=== PATIENT | male | born 1965 | race Caucasian/White ===

== ENCOUNTER 2022-09-11 19:03 | Emergency (ER) | payer OTHER ==
--- OUTSIDE RECORDS SUMMARY | 2022-09-11 19:07 | XMS REPORT | Continuity of Care Document ---
:1965 Author Organization [facility] t Address 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 [facility] without [facility] complicati [facility] on Center [id number] Essential Problem Active Comm on (primary) Spirit hypertensi - [facility] on [facility] [id number] Non-season Problem Active Com mon al Spirit allergic - CHI rhinitis St due to [facility] pollen [facility] [id number] Pure Problem Active Common hyperchole Spirit sterolemia - [facility] Hyperglyce Type 2 Problem Active Commo n [facility] due to diabetes Spir it type 2 mellitus - CHI diabetes with mellitus hyperglyce [facility] Allergies, Adverse Reactions, Alerts This patient has no known allergies or adverse reactions. Social History Social Habit Start Date Stop Date Quantity Comments Source History of Tobacco Current Smoker Co mmon Spirit - [facility] Use [facility] al Center Sex Assigned At Com mon Spirit - [facility] Smoking Status Start Date Stop Date Source Current Smoker 2021-09-02 00:00:00 Common Spiri t - CHI [facility] Medications Ordered Filled Start Stop Current Ordering Indication Dosage Frequency Signature Comments Components Source Medication Medication Date Date Medication? Clinician (SIG) Name Name metFORMIN metFORMIN No 1{table BID metFORMIN HCl ER 500 HCl ER 500 09-02 t_with_ HCl ER 500 MG MG 00:00: evening MG 00 _meal} Atorvastati Atorvastati No 1{table Atorvastat n Calcium n Calcium 3-18 t} in Calcium 40 MG 40 MG 00:00: 40 MG 00 Fluticasone Fluticasone No 1{spray QD Fluticason Propionate Propionate 3-18 _in_eac e 50 MCG/ACT 50 MCG/ACT 00:00: h_nostr Propionate 00 il} 50 MCG/ACT Metoprolol Metoprolol No 1{table QD Metoprolol Succinate Succinate 3-18 t} Succinate ER 50 MG ER 50 MG 00:00: ER 50 MG 00 Atorvastati Atorvastati No 1{table Atorvastat n Calcium n Calcium 3-18 t} in Calcium 40 MG 40 MG 00:00: 40 MG 00 Fluticasone Fluticasone No 1{spray QD Fluticason Propionate Propionate 3-18 _in_eac e 50 MCG/ACT 50 MCG/ACT 00:00: h_nostr Propionate 00 il} 50 MCG/ACT Metoprolol Metoprolol No 1{table QD Metoprolol Succinate Succinate 3-18 t} Succinate ER 50 MG ER 50 MG 00:00: ER 50 MG 00 Tessalon Tessalon No 1{capsu TID Tessalon Perles 100 Perles 100 3-08 le_as_n Perles 100 MG MG 00:00: eeded} MG 00 Tessalon Tessalon No 1{capsu TID Tessalon Perles 100 Perles 100 3-08 le_as_n Perles 100 MG MG 00:00: eeded} MG 00 Tessalon Tessalon No 1{capsu TID Tessalon Perles 100 Perles 100 3-08 le_as_n Perles 100 MG MG 00:00: eeded} MG 00 Tessalon Tessalon No 1{capsu TID Tessalon Perles 100 Perles 100 3-08 le_as_n Perles 100 MG MG 00:00: eeded} MG 00 Tessalon Tessalon No 1{capsu TID Tessalon Perles 100 Perles 100 3-08 le_as_n Perles 100 MG MG 00:00: eeded} MG 00 Metoprolol Metoprolol No Metoprolol Succinate Succinate Succinate ER 25 MG ER 25 MG ER 25 MG Patito Low Patito Low No 1{table QD Patito Low Dose 81 MG Dose 81 MG t} Dose 81 MG Patito Low Patito Low No 1{table QD Patito Low Dose 81 MG Dose 81 MG t} Dose 81 MG Patito Low [employer] Low No 1{table QD Patito Low Dose 81 MG Dose 81 MG t} Dose 81 MG Metoprolol Metoprolol No 1{table QD Metoprolol Succinate Succinate t} Succinate ER 50 MG ER 50 MG ER 50 MG Fluticasone Fluticasone No 1{spray QD Fluticason Propionate Propionate _in_eac e 50 MCG/ACT 50 MCG/ACT h_nostr Propionate il} 50 MCG/ACT Atorvastati Atorvastati No 1{table Atorvastat n Calcium n Calcium t} in Calcium 40 MG 40 MG 40 MG Patito Low Patito Low No 1{table QD Patito Low Dose 81 MG Dose 81 MG t} Dose 81 MG Fluticasone Fluticasone No 1{spray QD Fluticason Propionate Propionate _in_eac e 50 MCG/ACT 50 MCG/ACT h_nostr Propionate il} 50 MCG/ACT Metoprolol Metoprolol No 1{table QD Metoprolol Succinate Succinate t} Succinate ER 50 MG ER 50 MG ER 50 MG Patito Low [employer] Low No 1{table QD Patito Low Dose 81 MG Dose 81 MG t} Dose 81 MG Atorvastati Atorvastati No 1{table Atorvastat n Calcium n Calcium t} in Calcium 40 MG 40 MG 40 MG Vital Signs Vital Name Observation Time Observation Value Comments Source height 2021-04-29 16:20:00 69 [in_i] [facility] weight 2021-04-29 16:20:00 241.4 [lb_av] Common [facility] temperature 2021-04-29 16:20:00 97.4 [degF] [facility] bmi 2021-04-29 16:20:00 35.64 kg/m2 [facility] oximetry 2021-04-29 16:20:00 97 % [facility] respiratory rate 2021-04-29 16:20:00 16 /min Comm on [facility] blood pressure 2021-04-29 16:20:00 142 mm[Hg] Common [facility] - systolic [facility] blood pressure 2021-04-29 16:20:00 82 mm[Hg] Common [facility] - diastolic [facility] height 2021-04-19 08:20:00 69 [in_i] Common [facility] weight 2021-04-19 08:20:00 240 [lb_av] Common [facility] bmi 2021-04-19 08:20:00 35.44 kg/m2 Common [facility] Procedures This patient has no known procedures. Encounters Start End Encounter Admission Attending Care Care Encounter Source Date/Time Date/Time Type Type Clinicians Facility Department ID 2022-08-23 Outpatient Crump, STLMLC STLMLC [id number] Common 11:18:00 Jadyn [id number] [facility] 2022-05-22 Outpatient Crump, STLMLC STLMLC [id number] Common 08:17:00 Jadyn [id number] [facility] 2022-03-08 Outpatient Crump, STLMLC STLMLC [id number] Common 08:50:03 Jadyn [facility] 2021-11-15 Outpatient Crump, STLMLC STLMLC [id number] Common 13:55:02 Jadyn [facility] 2021-08-31 Outpatient Crump, STLMLC STLMLC [id number] Common 08:53:02 Jadyn [facility] 2021-04-28 Outpatient Crump, STLMLC STLMLC [id number] Common 13:19:01 Jadyn [facility] 2021-04-27 Outpatient Crump, STLMLC STLMLC [id number] Common 11:29:02 Jadyn [facility] 2021-04-19 Outpatient Crump, STLMLC STLMLC [id number] Common 08:27:03 Jadyn [facility] 2021-09-02 2021-09-02 OFFICE STLMLC STLMLC [id number] Co mmon 00:00:00 00:00:00 VISIT [facility] PT - CHI LEVEL 4 [facility] 2021-08-30 2021-08-30 (TEL) STLMLC STLMLC [id number] Co mmon 00:00:00 00:00:00 [facility] 2021-05-02 2021-05-02 (TEL) STLMLC STLMLC [id number] Co mmon 00:00:00 00:00:00 [facility] 2021-04-29 2021-04-29 OFFICE STLMLC STLMLC [id number] Co mmon 00:00:00 00:00:00 [facility]IT [facility] - [facility] LEVEL 4 [facility] 2021-04-19 2021-04-19 OFFICE STLMLC STLMLC [id number] Co mmon 00:00:00 00:00:00 VISIT JOSE MIGUEL [facility] PT LEVEL 3 - [facility] Results This patient has no known results.
--- NOTE | 2022-09-11 19:58 | RAD REPORT ---
EXAM DESCRIPTION: CTStone Protocol - 09/11/2022 7:38 pm CLINICAL HISTORY: FLANK PAIN COMPARISON: No comparisons TECHNIQUE: CT of the abdomen and pelvis was performed without IV contrast. All CT scans are performed using dose optimization technique as appropriate and may include automated exposure control or mA/KV adjustment according to patient size. FINDINGS: Lower chest: Coronary artery calcifications. Liver: Hepatic steatosis. Biliary: No biliary ductal dilatation. Stomach: No significant focal abnormality. Duodenum: No significant focal abnormality. Pancreas: No significant abnormality. Spleen: No significant abnormality. Adrenal: No suspicious lesions. Kidney/ureter: Mild right-sided hydroureteronephrosis secondary to a 4 millimeters stone at the right distal ureter. No renal calculi. Retroperitoneum: No retroperitoneal adenopathy. Vascular: No aneurysm. Bowel: No significant focal abnormality. Peritoneum: No ascites or free air. Small fat containing inguinal hernias. Bladder: Grossly unremarkable. Reproductive: No adnexal masses. Bones: No acute fracture. Other: n/a IMPRESSION: Mild right-sided hydronephrosis secondary to a 4 mm stone in the right distal ureter.
[2022-09-11 20:02] LABS: Specific Gravity 1.025 (1.005-1.030); Urine Bacteria <20 /HPF (<20); Urine Bilirubin NEGATIVE (Negative); Urine Blood 3+ (OVER) (Negative); Urine Clarity Extremely Turbid (Clear); Urine Color Light-Orange (Yellow); Urine Glucose NEGATIVE (Negative); Urine Mucus 3+ /HPF (None Seen); Urine Protein 1+ (Negative); Urine RBC >50 /HPF (None Seen); Urine Urobilinogen Normal (Normal); Urine pH 5.5 (5.0-7.0)
[2022-09-11] MEDS ORDERED: ONDANSETRON 4 MG/2 ML VIAL ONE (20:14)
[2022-09-11] MEDS ORDERED: KETOROLAC 30 MG/ML INJ ONE (20:14)
[2022-09-11 20:27] LABS: Absolute Lymphocytes (CBC) 3.4 K/uL (0.7-4.9); Hematocrit 45.1 % (39.6-49.0); Lymphocytes % 19.8 % (15.3-44.8); MCV 87.8 fL (80-100); MPV 7.7 fL (7.6-11.3); RBC Red Blood Cell Count 5.13 M/uL (4.33-5.43)
[2022-09-11 20:43] LABS: Albumin 3.9 g/dL (3.4-5.0); Bilirubin Total 0.7 mg/dL (0.2-1.0); Potassium 3.8 mEq/L (3.5-5.1); Protein, Total 7.7 g/dL (6.4-8.2)
[2022-09-11] MEDS ORDERED: MAGNESIUM SULFATE 1 gm IVPB 1 GM/100 ML BAG IV ONE (21:31)
[2022-09-11] MEDS ORDERED: HYDROMORPHONE HCL 1 MG/ML INJ ONE (21:31)
[2022-09-11] MEDS ORDERED: NA CHLORIDE 0.9% 1,000 ML ONE (21:31)
[2022-09-11] MEDS ORDERED: CEFTRIAXONE 1000 MG/VIAL ONE (21:31)
[2022-09-11] MEDS ORDERED: TAMSULOSIN 0.4 MG SR CAP ONE (21:31)
--- NOTE | 2022-09-11 22:44 | EDPHYS ---
Physician Documentation [facility] Name: Michael Shafer Age: 57 yrs Sex: Male : 1965 Arrival Date: 09/11/2022 Time: 19:03 Bed 15 Private MD: ED Physician Daniel Lee HPI: 09/11 19:30 This 57 yrs old Male presents to ER via Ambulatory with complaints of Flank Pain. cp 19:30 The patient complains of pain in the right flank. cp 19:30 The pain radiates to the abdomen and right testicle. Onset: The symptoms/episode cp began/occurred suddenly, today, about 1800. 19:30 Associated signs and symptoms: Pertinent positives: urinary frequency, nausea, cp vomiting, Pertinent negatives: diarrhea, fever, headache, pain radiating to the lower extremities. Severity of pain: in the emergency department the pain is unchanged despite home interventions. The patient has not experienced similar symptoms in the past. Historical: - Allergies: 19:16 NKA; cm10 - PMHx: 19:16 Diabetes mellitus; Hypertensive disorder; cm10 - Immunization history:: Adult Immunizations. - Social history:: Smoking status: unknown. ROS: 19:35 Eyes: Negative for injury, pain, redness, and discharge. cp 19:35 Constitutional: Negative for chills, fever, poor PO intake. 19:35 ENT: Negative for drainage from ear(s), ear pain, sore throat, difficulty swallowing, difficulty handling secretions. 19:35 Cardiovascular: Negative for chest pain, palpitations. 19:35 Respiratory: Negative for cough, shortness of breath, wheezing. 19:35 Abdomen/GI: Positive for nausea and vomiting, Negative for diarrhea, constipation. 19:35 Back: Positive for flank pain, on the right. 19:35 : Positive for urinary frequency, testicular pain 19:35 Neuro: Negative for altered mental status, dizziness, headache, numbness, syncope, weakness. 19:36 All other systems are negative. cp Exam: 19:40 Constitutional: The patient appears in no acute distress, alert, awake, non-toxic, well cp developed, well nourished, in obvious pain, uncomfortable. 19:40 Head/Face: Normocephalic, atraumatic. cp 19:40 Eyes: Periorbital structures: appear normal, Conjunctiva: normal, no exudate, no injection, Sclera: no appreciated abnormality, Lids and lashes: appear normal, bilaterally. 19:40 ENT: External ear(s): are unremarkable, Nose: is normal, Mouth: Lips: moist, Oral mucosa: pink and intact, moist, Posterior pharynx: is normal, airway is patent, no erythema, no exudate. 19:40 Chest/axilla: Inspection: normal. 19:40 Cardiovascular: Rate: normal, Rhythm: regular, Edema: is not appreciated, JVD: is not appreciated. 19:40 Respiratory: the patient does not display signs of respiratory distress, Respirations: normal, no use of accessory muscles, no retractions, labored breathing, is not present, Breath sounds: are clear throughout, no decreased breath sounds, no stridor, no wheezing. 19:40 Abdomen/GI: Inspection: abdomen appears normal, Bowel sounds: active, all quadrants, Palpation: soft, in all quadrants, moderate abdominal tenderness, in the anterior aspect of right lateral abdomen and posterior aspect of right lateral abdomen, rebound tenderness, is not appreciated, voluntary guarding, is elicited in the anterior aspect of right lateral abdomen and posterior aspect of right lateral abdomen. 19:40 Neuro: Orientation: to person, place \T\ time. Mentation: is normal, Motor: moves all fours, strength is normal, Gait: is steady. Vital Signs: 19:14 BP 190 / 84; Pulse 63; Resp 18; Temp 98.4; Pulse Ox 99% on R/A; Weight 104.33 kg; cm10 Height 5 ft. 8 in. ; Pain 9/10; 21:57 BP 152 / 77; Pulse 64; Resp 16; Pulse Ox 96% on R/A; jb4 23:13 BP 113 / 77; Pulse 63; Resp 16; Pulse Ox 95% on R/A; jb4 19:14 Body Mass Index 34.97 (104.33 kg, 172.72 cm) cm10 19:14 Pain Scale: Adult cm10 MDM: 19:18 Patient medically screened. cp 20:00 Differential diagnosis: nephrolithiasis, pyelonephritis, UTI, testicular torsion, cp pancreatitis, cholecystitis. 22:42 Data reviewed: vital signs, nurses notes, lab test result(s), radiologic studies, CT cp scan. 22:42 Consideration of Admission/Observation Escalation of care including cp admission/observation considered. I considered the following discharge prescriptions or medication management in the emergency department Medications were administered in the Emergency Department. See MAR. Care significantly affected by the following chronic conditions: Diabetes, Hypertension. Counseling: I had a detailed discussion with the patient and/or guardian regarding: the historical points, exam findings, and any diagnostic results supporting the discharge/admit diagnosis, lab results, radiology results, to return to the emergency department if symptoms worsen or persist or if there are any questions or concerns that arise at home. Response to treatment: the patient's symptoms have markedly improved after treatment, and as a result, I will discharge patient. 09/11 19:18 Order name: CBC with Diff; Complete Time: 20:38 09/11 21:54 Interpretation: Normal except: WBC 17.10; NEUT A 12.3. 09/11 19:18 Order name: CMP; Complete Time: 21:05 09/11 21:54 Interpretation: Normal except: NA 133; GLUC 159; GLOB 3.8; A/G 1.0. 09/11 19:18 Order name: Lipase; Complete Time: 21:05 09/11 19:18 Order name: Urinalysis w/ reflexes; Complete Time: 20:38 09/11 21:54 Interpretation: Normal except: [facility] Extremely Turbid; UKET 1+; UBLD 3+ (OVER); UPROT cp 1+; UWBC 10-20; URBC >50; MUCUS 3+; BYST Many. 09/11 20:06 Order name: Urine Culture [facility] 09/11 19:18 Order name: CT Stone Protocol; Complete Time: 20:38 09/11 19:18 Order name: IV Saline Lock; Complete Time: 20:12 09/11 19:18 Order name: Labs collected and sent; Complete Time: 20:12 09/11 20:40 Order name: Urine Strainer; Complete Time: 23:12 09/11 21:53 Order name: Vital Signs; Complete Time: 21:58 cp Administered Medications: 20:12 Drug: TORadol - Ketorolac IVP 15 mg Route: IVP; Site: left antecubital; cm10 20:12 Drug: Ondansetron IVP 4 mg Route: IVP; Site: left antecubital; cm10 21:40 Drug: NS 0.9% IV 1000 ml Route: IV; Rate: 1 bolus; Site: left antecubital; cm10 21:40 Drug: Rocephin IV 1 grams Route: IV; Rate: calculated rate; Site: left antecubital; cm10 21:40 Drug: Flomax PO 0.4 mg Route: PO; cm10 21:40 Drug: Magnesium Sulfate IVPB 1 grams Route: IVPB; Infused Over: 30 mins; Site: left cm10 antecubital; 21:40 Drug: HYDROmorphone IVP 1 mg Route: IVP; Site: left antecubital; cm10 Disposition Summary: 09/11/22 22:43 Discharge Ordered Location: Home cp Problem: new cp Symptoms: have improved cp Condition: Stable cp Diagnosis - Calculus of ureter - right cp Followup: cp - With: Pierce Ott MD - When: 5 - 6 days - Reason: pain continues Discharge Instructions: - Discharge Summary Sheet cp - Kidney Stones cp - Renal Colic cp Forms: - Medication Reconciliation Form cp - Thank You Letter cp - Antibiotic Education cp - Prescription Opioid Use cp - Patient Portal Instructions cp Prescriptions: - Flomax 0.4 mg Oral capsule - take 1 capsule by ORAL route every 24 hours As needed; 7 capsule; Refills: 0, cp Product Selection Permitted - acetaminophen-codeine 300-30 mg Oral tablet - take 2 tablet by ORAL route every 8 hours; 20 tablet; Refills: 0, Product cp Selection Permitted - Zofran 4 mg Oral Tablet - take 1 tablet by ORAL route every 12 hours As needed; 20 tablet; Refills: 0, cp Product Selection Permitted - Cipro 500 mg Oral Tablet - take 1 tablet by ORAL route every 12 hours for 7 days; 14 tablet; Refills: 0, cp Product Selection Permitted Signatures: Dispatcher [employer] EDMS Lencho Loredo, LAST-C [employer] Adonis Blake PA PA cp Martinez, Clarissa, RN RN cm10 Corrections: (The following items were deleted from the chart) 09/12 21:21 09/11 19:05 Constitutional: Negative for chills, fever, poor PO intake, cp cp 09/12 21:09/11 19:05 Cardiovascular: Negative for chest pain, palpitations, cp cp 09/12 21:21 09/11 19:05 Respiratory: Negative for cough, shortness of breath, wheezing, cp cp 09/12 20:09/11 19:05 Abdomen/GI: Positive for nausea and vomiting, Negative for diarrhea, cp constipation, cp 09/12 20:09/11 19:05 Back: Positive for flank pain, on the right, cp cp 09/12 20:09/11 19:05 Eyes: Negative for injury, pain, redness, and discharge, cp cp 09/12 20:09/11 19:05 ENT: Negative for drainage from ear(s), ear pain, sore throat, difficulty cp swallowing, difficulty handling secretions, cp 09/12 20:09/11 19:05 : Positive for urinary frequency, testicular pain cp cp 09/12 20:09/11 19:05 Neuro: Negative for altered mental status, dizziness, headache, numbness, cp syncope, weakness, cp 09/12 20:09/11 19:05 All other systems are negative, cp cp
--- NOTE | 2022-09-11 22:44 | ER ---
Nurse's Notes [facility] Name: Michael Shafer Age: 57 yrs Sex: Male : 1965 Arrival Date: 09/11/2022 Time: 19:03 Bed 15 Private MD: Diagnosis: Calculus of ureter-right Presentation: 09/11 19:14 Chief complaint: Patient states: Right flank pain that radiates to RLQ onset at cm10 approximately 1800. Pt describes the pain as a sharp pain. Coronavirus screen: Vaccine status: Patient reports receiving the 2nd dose of the covid vaccine. Ebola Screen: No symptoms or risks identified at this time. Initial Sepsis Screen: Does the patient meet any 2 criteria? Does the patient have a suspected source of infection? No. Patient's initial sepsis screen is negative. Risk Assessment: Do you want to hurt yourself or someone else? Patient reports no desire to harm self or others. Onset of symptoms. 19:14 Method Of Arrival: Ambulatory cm10 19:14 Acuity: CRISSY 3 cm10 Historical: - Allergies: 19:16 NKA; cm10 - PMHx: 19:16 Diabetes mellitus; Hypertensive disorder; cm10 - Immunization history:: Adult Immunizations. - Social history:: Smoking status: unknown. Screenin:13 [facility] ED Fall Risk Assessment (Adult) History of falling in the last 3 months, jb4 including since admission No falls in past 3 months (0 pts) Confusion or Disorientation No (0 pts). Abuse screen: Denies threats or abuse. Nutritional screening: No deficits noted. Tuberculosis screening: No symptoms or risk factors identified. Assessment: 21:57 Reassessment: Patient appears in no apparent distress at this time. Patient and/or jb4 family updated on plan of care and expected duration. Pain level reassessed. Patient is alert, oriented x 3, equal unlabored respirations, skin warm/dry/pink. 23:13 Reassessment: Patient appears in no apparent distress at this time. Patient and/or jb4 family updated on plan of care and expected duration. Pain level reassessed. Patient is alert, oriented x 3, equal unlabored respirations, skin warm/dry/pink. Vital Signs: 19:14 BP 190 / 84; Pulse 63; Resp 18; Temp 98.4; Pulse Ox 99% on R/A; Weight 104.33 kg; cm10 Height 5 ft. 8 in. ; Pain 9/10; 21:57 BP 152 / 77; Pulse 64; Resp 16; Pulse Ox 96% on R/A; jb4 23:13 BP 113 / 77; Pulse 63; Resp 16; Pulse Ox 95% on R/A; jb4 19:14 Body Mass Index 34.97 (104.33 kg, 172.72 cm) cm10 19:14 Pain Scale: Adult cm10 ED Course: 19:04 Patient arrived in ED. am2 19:09 Adonis Blake PA is PHCP. cp 19:09 Daniel Lee MD is Attending Physician. cp 19:16 Triage completed. cm10 19:17 Arm band placed on Patient placed in waiting room. cm10 19:39 CT Stone Protocol In Process Unspecified. EDMS 19:44 Urinalysis w/ reflexes Sent. cm10 20:12 CBC with Diff Sent. cm10 20:12 CMP Sent. cm10 20:12 Lipase Sent. cm10 20:13 Initial lab(s) drawn, by me, sent to lab. Inserted saline lock: 20 gauge in left cm10 antecubital area, using aseptic technique. Blood collected. 21:57 Rod Noel, RN is Primary Nurse. jb4 22:43 Pierce Ott MD is Referral Physician. cp 23:13 Patient has correct armband on for positive identification. Bed in low position. Call jb4 light in reach. Side rails up X 1. Client placed on continuous cardiac and pulse oximetry monitoring. NIBP monitoring applied. 23:13 No provider procedures requiring assistance completed. IV discontinued, intact, jb4 bleeding controlled, No redness/swelling at site. Pressure dressing applied. Administered Medications: 20:12 Drug: TORadol - Ketorolac IVP 15 mg Route: IVP; Site: left antecubital; cm10 20:12 Drug: Ondansetron IVP 4 mg Route: IVP; Site: left antecubital; cm10 21:40 Drug: NS 0.9% IV 1000 ml Route: IV; Rate: 1 bolus; Site: left antecubital; cm10 21:40 Drug: Rocephin IV 1 grams Route: IV; Rate: calculated rate; Site: left antecubital; cm10 21:40 Drug: Flomax PO 0.4 mg Route: PO; cm10 21:40 Drug: Magnesium Sulfate IVPB 1 grams Route: IVPB; Infused Over: 30 mins; Site: left cm10 antecubital; 21:40 Drug: HYDROmorphone IVP 1 mg Route: IVP; Site: left antecubital; cm10 Outcome: 22:43 Discharge ordered by . mary beth 23:13 Discharged to home ambulatory. jb4 23:13 Condition: stable 23:13 Discharge instructions given to patient, Instructed on discharge instructions, follow up and referral plans. no drinking with medication, no driving heavy equipment, medication usage, Demonstrated understanding of instructions, follow-up care, medications, Prescriptions given X 4. 23:14 Patient left the ED. jb4 Signatures: Dispatcher [employer] EDMS Adonis Blake PA PA cp Bryson, James RN RN jb4 Sheila Burt Clarissa, RN RN cm10
[2022-09-11 23:35] VITALS: TEMP 98.4
[2022-09-11 23:37] VITALS: BP 113/77; O2SAT 95
== END 2022-09-11 23:14 | disposition home or self-care (01) ==
LOC: ER 19:03
DX: N20.1 Calculus of ureter (principal)
CPT/HCPCS: 87088; 85025; 81001; 87086; 36415; 83690; 80053; 76377; 74176; 96375; 96374; 99284; J3475; J1170; J2405; J7030; J0696

== ENCOUNTER 2022-09-14 18:34 | Emergency (ER) | payer OTHER ==
--- OUTSIDE RECORDS SUMMARY | 2022-09-14 18:37 | XMS REPORT | Continuity of Care Document ---
:1965 Author Organization [facility] t Address 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 [facility] without [facility] complicati [facility] [id number] Essential Problem Active Comm on (primary) Spirit hypertensi - [facility] on [facility] [id number] Non-season Problem Active Com mon al Spirit allergic - CHI rhinitis St due to [facility] [id number] Pure Problem Active Common hyperchole Spirit sterolemia - [facility] Hyperglyce Type 2 Problem Active Commo n [facility] due to diabetes Spir it type 2 mellitus - CHI diabetes with mellitus hyperglyce [facility] Allergies, Adverse Reactions, Alerts This patient has no known allergies or adverse reactions. Social History Social Habit Start Date Stop Date Quantity Comments Source History of Tobacco Current Smoker Co mmon Spirit - [facility] Use [facility] Sex Assigned At Com mon Spirit - [facility] Smoking Status Start Date Stop Date Source Current Smoker 2021-09-02 00:00:00 Common Spiri t - CHI [facility] Medications Ordered Filled Start Stop Current [...] MG 00:00: 40 MG 00 Fluticasone Fluticasone 0 No 1{spray QD Fluticason Propionate Propionate 3-18 [...] MG 00:00: 40 MG 00 Fluticasone Fluticasone 0 No 1{spray QD Fluticason Propionate Propionate 3-18 _in_eac e 50 MCG/ACT 50 MCG/ACT 00:00: h_nostr Propionate 00 il} 50 MCG/ACT Metoprolol Metoprolol 0 No 1{table QD Metoprolol Succinate Succinate 3-18 t} Succinate ER 50 MG ER 50 MG 00:00: ER 50 MG 00 Tessalon Tessalon No 1{capsu TID Tessalon Perles 100 Perles 100 3-08 le_as_n Perles 100 MG MG 00:00: eeded} MG 00 Tessalon Tessalon 0 No 1{capsu TID Tessalon Perles 100 Perles 100 3-08 le_as_n Perles 100 MG MG 00:00: eeded} MG 00 Tessalon Tessalon 0 No 1{capsu TID Tessalon Perles 100 Perles 100 3-08 le_as_n Perles 100 MG MG 00:00: eeded} MG 00 Tessalon Tessalon 2021-0 No 1{capsu TID Tessalon Perles 100 Perles 100 3-08 le_as_n Perles 100 MG MG 00:00: eeded} MG 00 Tessalon Tessalon 0 No 1{capsu TID Tessalon Perles 100 Perles 100 3-08 le_as_n Perles 100 MG MG 00:00: eeded} MG 00 Metoprolol Metoprolol No Metoprolol Succinate Succinate Succinate ER 25 MG ER 25 MG ER 25 MG Patito Low ALTILIA Low No 1{table QD Patito Low Dose 81 MG Dose 81 MG t} Dose 81 MG Patito Low ALTILIA Low No 1{table QD Patito Low Dose 81 MG Dose 81 MG t} Dose 81 MG Patito Low ALTILIA Low No 1{table QD Patito Low Dose [...] MG 40 MG 40 MG Patito Low ALTILIA Low No 1{table QD Patito Low Dose 81 MG Dose 81 MG t} Dose 81 MG Fluticasone Fluticasone No 1{spray QD Fluticason Propionate Propionate _in_eac e 50 MCG/ACT 50 MCG/ACT h_nostr Propionate il} 50 MCG/ACT Metoprolol Metoprolol No 1{table QD Metoprolol Succinate Succinate t} Succinate ER 50 MG ER 50 MG ER 50 MG Patito Low ALTILIA Low No 1{table QD Patito Low Dose 81 MG Dose 81 MG t} Dose 81 MG Atorvastati Atorvastati No 1{table Atorvastat n Calcium n Calcium t} in Calcium 40 MG 40 MG 40 MG Vital Signs Vital Name Observation Time Observation Value Comments Source height 2021-04-29 16:20:00 69 [in_i] [facility] weight 2021-04-29 16:20:00 241.4 [lb_av] Common [facility] temperature 2021-04-29 16:20:00 97.4 [degF] [facility] bmi 2021-04-29 16:20:00 35.64 kg/m2 [facility] oximetry 2021-04-29 16:20:00 97 % [facility] respiratory rate 2021-04-29 16:20:00 16 /min Comm on [facility] blood pressure 2021-04-29 16:20:00 142 mm[Hg] Common [facility] - systolic [facility] blood pressure 2021-04-29 16:20:00 82 mm[Hg] Common [facility] - diastolic [facility] height 2021-04-19 08:20:00 69 [in_i] Common [facility] weight 2021-04-19 08:20:00 240 [lb_av] Common [facility] bmi 2021-04-19 08:20:00 35.44 kg/m2 Common [facility] Procedures This patient has no known procedures. Encounters Start End Encounter Admission Attending Care Care Encounter Source Date/Time Date/Time Type Type Clinicians Facility Department ID 2022-09-14 Outpatient Crump, STLMLC STLMLC [id number] Common 16:31:00 Jadyn [id number] [facility] 2022-08-23 Outpatient Crump, STLMLC STLMLC [id number] Common 11:18:00 Jadyn [id number] [facility] 2022-05-22 Outpatient Crump, STLMLC STLMLC [id number] Common 08:17:00 Jadyn [id number] [facility] 2022-03-08 Outpatient Crump, STLMLC STLMLC [id number] Common 08:50:03 Jadyn [id number] [facility] 2021-11-15 Outpatient Crump, STLMLC STLMLC [id number] Common 13:55:02 Jadyn [facility] 2021-08-31 Outpatient Crump, STLMLC STLMLC [id number] Common 08:53:02 Jadyn [facility] 2021-04-28 Outpatient Crump, STLMLC STLMLC [id number] Common 13:19:01 Jadyn [facility] 2021-04-27 Outpatient Crump, STLMLC STLMLC [id number] Common 11:29:02 Jadyn [facility] 2021-04-19 Outpatient Alisia, STLMLC STLMLC [id number] Common 08:27:03 Jadyn [facility] 2021-09-02 2021-09-02 OFFICE STLMLC STLMLC [id number] Co mmon 00:00:00 00:00:00 VISIT [facility] PT - CHI LEVEL 4 [facility] 2021-08-30 2021-08-30 (TEL) STLMLC STLMLC [id number] Co mmon 00:00:00 00:00:00 [facility] 2021-05-02 2021-05-02 (TEL) STLMLC STLMLC [id number] Co mmon 00:00:00 00:00:00 [facility] 2021-04-29 2021-04-29 OFFICE STLMLC STLMLC [id number] Co mmon 00:00:00 00:00:00 VISIT [facility] PT - CHI LEVEL 4 [facility] 2021-04-19 2021-04-19 OFFICE STLMLC STLMLC [id number] Co mmon 00:00:00 00:00:00 VISIT [facility] PT LEVEL 3 [facility] Results This patient has no known results.
[2022-09-14] MEDS ORDERED: KETOROLAC 30 MG/ML INJ ONE (19:06)
[2022-09-14] MEDS ORDERED: PROMETHAZINE INJ 25 MG/ML AMP ONE (19:06)
[2022-09-14 20:54] LABS: Specific Gravity 1.017 (1.005-1.030); Urine Bacteria None Seen /HPF (<20); Urine Bilirubin NEGATIVE (Negative); Urine Blood 2+ (Negative); Urine Clarity Clear (Clear); Urine Color Light-Yellow (Yellow); Urine Glucose NEGATIVE (Negative); Urine Mucus Slight /HPF (None Seen); Urine Protein TRACE (Negative); Urine RBC <5 /HPF (None Seen); Urine Urobilinogen Normal (Normal)
[2022-09-14 21:10] LABS: Absolute Lymphocytes (CBC) 1.2 K/uL (0.7-4.9); Hematocrit 44.4 % (39.6-49.0); Lymphocytes % 7.3 % (15.3-44.8); MCV 87.3 fL (80-100); MPV 7.4 fL (7.6-11.3); RBC Red Blood Cell Count 5.08 M/uL (4.33-5.43)
[2022-09-14 21:27] LABS: Albumin 3.6 g/dL (3.4-5.0); Bilirubin Total 0.8 mg/dL (0.2-1.0); Potassium 4.1 mEq/L (3.5-5.1); Protein, Total 7.3 g/dL (6.4-8.2)
--- NOTE | 2022-09-14 22:11 | RAD REPORT ---
EXAM DESCRIPTION: RAD - Abdomen 1 View (KUB) - 09/14/2022 10:02 pm CLINICAL HISTORY: KIDNEY STONES Pain COMPARISON: Stone Protocol dated 09/11/2022 FINDINGS: The bowel gas pattern is non-obstructive. No evidence of free air or pneumatosis. No suspi cious calcifications. No significant bony findings. IMPRESSION: Negative examination.
--- NOTE | 2022-09-14 22:23 | ER ---
Nurse's Notes [facility] Name: Michael Shafer Age: 57 yrs Sex: Male : 1965 Arrival Date: 09/14/2022 Time: 18:34 Bed 20 Private MD: Diagnosis: Unspecified renal colic Presentation: 09/14 18:50 Chief complaint: Patient states: Severe R flank pain for 2 days with nausea. Diagnosed ll1 with kidney stone on Sunday. No fever. Coronavirus screen: Vaccine status: Patient reports receiving the 2nd dose of the covid vaccine. Client denies travel out of the [place] in the last 14 days. At this time, the client does not indicate any symptoms associated with coronavirus-19. Ebola Screen: Patient denies travel to an Ebola-affected area in the 21 days before illness onset. Initial Sepsis Screen: Does the patient meet any 2 criteria? No. Patient's initial sepsis screen is negative. Does the patient have a suspected source of infection? Yes: Dysuria/Frequency/Urgency/UTI. Risk Assessment: Do you want to hurt yourself or someone else? Patient reports no desire to harm self or others. Onset of symptoms was September 13, 2022. 18:50 Method Of Arrival: Ambulatory ll1 18:50 Acuity: CRISSY 3 ll1 Historical: - Allergies: 18:49 NKA; ll1 - PMHx: 18:49 diabetes mellitus; Hypertensive disorder; Kidney stone; ll1 - PSHx: 18:49 heart stent; ll1 - Immunization history:: Client reports receiving the 2nd dose of the Covid vaccine. - Social history:: Smoking status: Patient reports use of chewing tobacco. Patient denies any tobacco usage or history of. Screenin:45 [facility] ED Fall Risk Assessment (Adult) History of falling in the last 3 months, ha1 including since admission No falls in past 3 months (0 pts) Confusion or Disorientation No (0 pts) Intoxicated or Sedated No (0 pts) Impaired Gait No (0 pts) Mobility Assist Device Used No (0 pt) Altered Elimination No (0 pt) Score/Fall Risk Level 0 - 2 = Low Risk Oriented to surroundings, Maintained a safe environment, Educated pt \T\ family on fall prevention, incl call for assistance when getting out of bed. Abuse screen: Denies threats or abuse. Denies injuries from another. Nutritional screening: No deficits noted. Tuberculosis screening: No symptoms or risk factors identified. Assessment: 20:35 General: Appears comfortable, Behavior is calm, cooperative. Pain: Complains of pain in ha1 right lower quadrant and right mid back Pain does not radiate. Pain currently is 6 out of 10 on a pain scale. Quality of pain is described as throbbing. Neuro: Level of Consciousness is awake, alert, obeys commands, Oriented to person, place, time, situation. Cardiovascular: Capillary refill < 3 seconds Patient's skin is warm and dry. Respiratory: Airway is patent Respiratory effort is even, unlabored, Respiratory pattern is regular, symmetrical. GI: Abdomen is round non-distended, Bowel sounds present X 4 quads. Abd is soft and non tender X 4 quads. : Reports was diagnosed with kidney stones on Sunday. 21:30 Reassessment: Patient and/or family updated on plan of care and expected duration. Pain ha1 level reassessed. Patient is alert, oriented x 3, equal unlabored respirations, skin warm/dry/pink. 22:30 Reassessment: Patient and/or family updated on plan of care and expected duration. Pain ha1 level reassessed. Patient is alert, oriented x 3, equal unlabored respirations, skin warm/dry/pink. Vital Signs: 18:50 BP 132 / 68; Pulse 70; Resp 17; Temp 97.7; Pulse Ox 99% ; Weight 104.33 kg; Height 5 ll1 ft. 8 in. ; Pain 10/10; 20:45 BP 112 / 93; Pulse 60; Resp 18 S; Pulse Ox 97% on R/A; ha1 21:30 BP 127 / 71; Pulse 61; Resp 17 S; Pulse Ox 95% on R/A; ha1 22:30 BP 123 / 73; Pulse 63; Resp 17 S; Pulse Ox 96% on R/A; ha1 18:50 Body Mass Index 34.97 (104.33 kg, 172.72 cm) ll1 18:50 Pain Scale: Adult ll1 ED Course: 18:36 Patient arrived in ED. rg4 18:51 Triage completed. ll1 18:54 Jennie Rojas FNP-C is [facility]. snw 18:54 Marvin Pina MD is Attending Physician. snw 19:50 Arm band placed on right wrist. ha1 20:00 Patient has correct armband on for positive identification. Placed in gown. Bed in low ha1 position. Call light in reach. Side rails up X 1. 20:45 Inserted saline lock: 22 gauge in left forearm, using aseptic technique. Blood ha1 collected. 20:48 Urine W/Microscopic (UAM) Sent. as6 20:53 Neema Al, RN is Primary Nurse. ha1 21:08 CMP Sent. ha1 21:08 CBC with Diff Sent. ha1 22:05 Abdomen 1 View (KUB) XRAY In Process Unspecified. EDMS 22:22 Pierce Ott MD is Referral Physician. snw 22:50 Provided Education on: medication administration and follow ups. ha1 22:54 No provider procedures requiring assistance completed. ha1 22:54 IV discontinued, intact, bleeding controlled, No redness/swelling at site. Pressure ha1 dressing applied. Administered Medications: 19:02 Drug: Ketorolac IM 30 mg Route: IM; Site: right gluteus; ll1 21:00 Follow up: Response: No adverse reaction; Pain is decreased ha1 19:02 Drug: Promethazine IM 25 mg Route: IM; Site: left vastus lateralis; ll1 21:00 Follow up: Response: No adverse reaction ha1 Medication: 22:50 VIS not applicable for this client. ha1 Outcome: 22:22 Discharge ordered by . snw 22:54 Patient left the ED. ha1 22:54 Discharged to home ambulatory, with family. ha1 22:54 Condition: stable 22:54 Discharge instructions given to patient, Instructed on discharge instructions, follow up and referral plans. medication usage, Demonstrated understanding of instructions, follow-up care, medications, Prescriptions given X 4. Signatures: Dispatcher [employer] EDMS Jennie Rojas, LIBRAC DRAPERY ESTIMATOR-Samara Londono rg4 Thompson Man RN RN ll1 Dagoberto Collins RN RN as6 Neema Al, CRICKET RN ha1
--- NOTE | 2022-09-14 22:23 | EDPHYS ---
Physician Documentation [facility] Name: Michael Shafer Age: 57 yrs Sex: Male : 1965 Arrival Date: 09/14/2022 Time: 18:34 Bed 20 Private MD: ED Physician Marvin Pina HPI: 09/14 19:00 This 57 yrs old Male presents to ER via Ambulatory with complaints of Possible Kidney snw Stone. 19:00 The patient complains of pain in the right mid back. The pain radiates to the right snw lower quadrant. Onset: The symptoms/episode began/occurred acutely, 4 day(s) ago, and became persistent. Severity of pain: At its worst the pain was moderate severe. The patient has not experienced similar symptoms in the past. seen here Sunday for 4mm kidney stone. Historical: - Allergies: 18:49 NKA; ll1 - PMHx: 18:49 diabetes mellitus; Hypertensive disorder; Kidney stone; ll1 - PSHx: 18:49 heart stent; ll1 - Immunization history:: Client reports receiving the 2nd dose of the Covid vaccine. - Social history:: Smoking status: Patient reports use of chewing tobacco. Patient denies any tobacco usage or history of. ROS: 19:10 Constitutional: Negative for fever, chills, and weight loss, Eyes: Negative for injury, snw pain, redness, and discharge, ENT: Negative for injury, pain, and discharge, Neck: Negative for injury, pain, and swelling, Cardiovascular: Negative for chest pain, palpitations, and edema, Respiratory: Negative for shortness of breath, cough, wheezing, and pleuritic chest pain, Abdomen/GI: Negative for abdominal pain, nausea, vomiting, diarrhea, and constipation, MS/Extremity: Negative for injury and deformity, Skin: Negative for injury, rash, and discoloration, Neuro: Negative for headache, weakness, numbness, tingling, and seizure, Psych: Negative for depression, anxiety, suicide ideation, homicidal ideation, and hallucinations. 19:10 Back: Positive for flank pain, on the right, radiated pain. 19:10 : Positive for hematuria. Exam: 19:10 Constitutional: This is a well developed, well nourished patient who is awake, alert, snw and in no acute distress. Head/Face: Normocephalic, atraumatic. Eyes: Pupils equal round and reactive to light, extra-ocular motions intact. Lids and lashes normal. Conjunctiva and sclera are non-icteric and not injected. Cornea within normal limits. Periorbital areas with no swelling, redness, or edema. ENT: Nares patent. No nasal discharge, no septal abnormalities noted. Tympanic membranes are normal and external auditory canals are clear. Oropharynx with no redness, swelling, or masses, exudates, or evidence of obstruction, uvula midline. Mucous membranes moist. Neck: Trachea midline, no thyromegaly or masses palpated, and no cervical lymphadenopathy. Supple, full range of motion without nuchal rigidity, or vertebral point tenderness. No Meningismus. Chest/axilla: Normal chest wall appearance and motion. Nontender with no deformity. No lesions are appreciated. Cardiovascular: Regular rate and rhythm with a normal S1 and S2. No gallops, murmurs, or rubs. Normal PMI, no JVD. No pulse deficits. Respiratory: Lungs have equal breath sounds bilaterally, clear to auscultation and percussion. No rales, rhonchi or wheezes noted. No increased work of breathing, no retractions or nasal flaring. Abdomen/GI: Soft, non-tender, with normal bowel sounds. No distension or tympany. No guarding or rebound. No evidence of tenderness throughout. 19:10 Skin: Warm, dry with normal turgor. Normal color with no rashes, no lesions, and no evidence of cellulitis. MS/ Extremity: Pulses equal, no cyanosis. Neurovascular intact. Full, normal range of motion. Neuro: Awake and alert, GCS 15, oriented to person, place, time, and situation. Cranial nerves II-XII grossly intact. Motor strength 5/5 in all extremities. Sensory grossly intact. Cerebellar exam normal. Normal gait. Psych: Awake, alert, with orientation to person, place and time. Behavior, mood, and affect are within normal limits. 19:10 Back: pain, that is moderate, of the right mid back, CVA tenderness, is noted on the right. Vital Signs: 18:50 BP 132 / 68; Pulse 70; Resp 17; Temp 97.7; Pulse Ox 99% ; Weight 104.33 kg; Height 5 ll1 ft. 8 in. ; Pain 10/10; 20:45 BP 112 / 93; Pulse 60; Resp 18 S; Pulse Ox 97% on R/A; ha1 21:30 BP 127 / 71; Pulse 61; Resp 17 S; Pulse Ox 95% on R/A; ha1 22:30 BP 123 / 73; Pulse 63; Resp 17 S; Pulse Ox 96% on R/A; ha1 18:50 Body Mass Index 34.97 (104.33 kg, 172.72 cm) ll1 18:50 Pain Scale: Adult ll1 MDM: 18:56 Patient medically screened. snw 19:11 Differential diagnosis: nephrolithiasis, pyelonephritis, UTI. Data reviewed: vital snw signs, nurses notes. I considered the following discharge prescriptions or medication management in the emergency department Medications were administered in the Emergency Department. See MAR. Counseling: I had a detailed discussion with the patient and/or guardian regarding: the historical points, exam findings, and any diagnostic results supporting the discharge/admit diagnosis, lab results, the need for outpatient follow up. 20:46 Response to treatment: the patient's symptoms have markedly improved after treatment. snw 22:34 ED course: pt has appt with Dr. Ott on Oct 02. snw 09/14 18:56 Order name: Urine W/Microscopic (UAM); Complete Time: 20:55 snw 09/14 18:56 Order name: CBC with Diff; Complete Time: 21:14 snw 09/14 18:56 Order name: CMP; Complete Time: 21:27 snw 09/14 21:22 Order name: Abdomen 1 View (KUB) XRAY; Complete Time: 22:20 snw Administered Medications: 19:02 Drug: Ketorolac IM 30 mg Route: IM; Site: right gluteus; ll1 21:00 Follow up: Response: No adverse reaction; Pain is decreased ha1 19:02 Drug: Promethazine IM 25 mg Route: IM; Site: left vastus lateralis; ll1 21:00 Follow up: Response: No adverse reaction ha1 Disposition Summary: 09/14/22 22:22 Discharge Ordered Location: Home snw Condition: Stable snw Diagnosis - Unspecified renal colic snw Followup: snw - With: Emergency Department - When: As needed - Reason: Worsening of condition Followup: snw - With: Private Physician - When: 1 - 2 days - Reason: Recheck today's complaints, Continuance of care, Re-evaluation by your physician Followup: snw - With: Pierce Ott MD - When: 1 week - Reason: Recheck today's complaints, Continuance of care Discharge Instructions: - Discharge Summary Sheet snw - Renal Colic snw - Dietary Guidelines to Help Prevent Kidney Stones snw - Rehydration, Adult snw Forms: - Medication Reconciliation Form snw - Thank You Letter snw - Antibiotic Education snw - Prescription Opioid Use snw - Patient Portal Instructions snw Prescriptions: - Flomax 0.4 mg Oral capsule - take 1 capsule by ORAL route every 24 hours; 15 capsule; Refills: 0, Product snw Selection Permitted - Diclofenac Sodium 75 mg Oral Tablet Sustained Release - take 1 tablet by ORAL route 2 times per day; 30 tablet; Refills: 0, Product snw Selection Permitted - promethazine 25 mg Oral Tablet - take 1 tablet by ORAL route every 6 hours As needed; 15 tablet; Refills: 0, snw Product Selection Permitted Addendum: 09/18/2022 10:53 Co-signature as Attending Physician, Marvin Pina MD I reviewed the patient's care r n provided by the Advanced Practice Provider and agree with the diagnosis and treatment plan. Signatures: Dispatcher [employer] Jennie Granger, CADD OPERATOR-C CADD OPERATOR-Csnw Marvin Pina MD MD rn Lewis, Lynsay, RN RN ll1 Neema Al RN ha1
[2022-09-14 23:41] VITALS: TEMP 97.7
[2022-09-14 23:43] VITALS: BP 127/71; O2SAT 95
== END 2022-09-14 22:54 | disposition home or self-care (01) ==
LOC: ER 18:34
DX: N23 Unspecified renal colic (principal); R31.9 Hematuria, unspecified; E11.9 Type 2 diabetes mellitus without complications; I10 Essential (primary) hypertension; F17.220 Nicotine dependence, chewing tobacco, uncomplicated; Z87.442 Personal history of urinary calculi; Z95.818 Presence of other cardiac implants and grafts
CPT/HCPCS: 85025; 81001; 36415; 80053; 74018; 96372; 99284; J2550

== ENCOUNTER 2023-11-07 16:46 | Emergency (ER) | payer OTHER ==
--- OUTSIDE RECORDS SUMMARY | 2023-11-07 16:49 | XMS REPORT | Continuity of Care Document ---
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 complicati on Problem Active [facility] [id number] Essential (primary) hypertensi on Problem Active [facility] [id number] Non-season al allergic rhinitis due to pollen Problem Active [facility] [id number] Pure hyperchole sterolemia Problem Active [facility] Hyperglyce génesis due to type 2 diabetes mellitus Type 2 diabetes mellitus with hyperglyce génesis Problem Active [facility] [id number] Acute right flank pain Problem [facility] [id number] Hydronephr osis, right Problem [facility] [id number] Kidney stones Problem [facility] [id number] Hydronephr osis with urinary obstructio n due to ureteral calculus Problem [facility] [id number] Ureterolit hiasis Problem [facility] Social History Social Habit Start Date Stop Date Quantity Comments Source History of Tobacco Use [facility] Sex Assigned At [facility] Smoking Status Start Date Stop Date Source Never Smoker [facility] Current Smoker 2021-09-02 00:00:00 [facility] Medications Ordered Medication Name Filled Medication Name Start Date Stop Date Current Medication? Ordering Clinician Indication Dosage Frequency Signature (SIG) Comments Components Source Cyclobenzap rine HCl 10 MG Cyclobenzap rine HCl 10 MG 06-06 00:00: 00 No 1{table t_at_be dtime_a s_neede d} Cyclobenza brina HCl 10 MG Ibuprofen 600 MG Ibuprofen 600 MG 06-06 00:00: 00 No TID Ibuprofen 600 MG Atorvastati n Calcium 40 MG Atorvastati n Calcium 40 MG No 1{table t} Atorvastat in Calcium 40 MG Metoprolol Succinate ER 50 MG Metoprolol Succinate ER 50 MG No 1{table t} QD Metoprolol Succinate ER 50 MG metFORMIN HCl ER 500 MG metFORMIN HCl ER 500 MG No BID metFORMIN HCl ER 500 MG Patito Low Dose 81 MG Patito Low Dose 81 MG No 1{table t} QD Patito Low Dose 81 MG Immunizations Ordered Immunization Name Filled Immunization Name Date Status Comments Source Boostrix (Tdap) Boostrix (Tdap) Unknown Completed [facility] Boostrix (Tdap) Boostrix (Tdap) Unknown Completed [facility] Boostrix (Tdap) Boostrix (Tdap) Unknown Completed [facility] Boostrix (Tdap) Boostrix (Tdap) Unknown Completed [facility] Boostrix (Tdap) Boostrix (Tdap) Unknown Completed [facility] Boostrix (Tdap) Boostrix (Tdap) Unknown Completed [facility] Boostrix (Tdap) Boostrix (Tdap) Unknown Completed [facility] Boostrix (Tdap) Boostrix (Tdap) Unknown Completed [facility] Boostrix (Tdap) Boostrix (Tdap) Unknown Completed [facility] Boostrix (Tdap) Boostrix (Tdap) Unknown Completed [facility] Boostrix (Tdap) Boostrix (Tdap) Unknown Completed [facility] Boostrix (Tdap) Boostrix (Tdap) Unknown Completed [facility] Boostrix (Tdap) Boostrix (Tdap) Unknown Completed [facility] Boostrix (Tdap) Boostrix (Tdap) Unknown Completed [facility] Boostrix (Tdap) Boostrix (Tdap) Unknown Completed [facility] Boostrix (Tdap) Boostrix (Tdap) Unknown Completed [facility] Boostrix (Tdap) Boostrix (Tdap) Unknown Completed [facility] Vital Signs Vital Name Observation Time Observation Value Comments S henrikce height 2023-09-14 16:00:00 69 [in_i] Commo [facility] weight 2023-09-14 16:00:00 230 [lb_av] Comm on [facility] bmi 2023-09-14 16:00:00 33.96 kg/m2 Comm on [facility] height 2023-06-07 10:00:00 69 [in_i] Commo n [facility] weight 2023-06-07 10:00:00 235 [lb_av] Comm on [facility] bmi 2023-06-07 10:00:00 34.7 kg/m2 Commo [facility] height 2023-05-30 08:40:00 69 [in_i] Comm n [facility] weight 2023-05-30 08:40:00 235 [lb_av] Comm on [facility] temperature 2023-05-30 08:40:00 97.2 [degF] Com mon [facility] bmi 2023-05-30 08:40:00 34.7 kg/m2 Commo n [facility] oximetry 2023-05-30 08:40:00 97 % Commo n [facility] respiratory rate 2023-05-30 08:40:00 16 /min Common [facility] blood pressure systolic 2023-05-30 08:40:00 136 mm[Hg] Common [facility] blood pressure diastolic 2023-05-30 08:40:00 82 mm[Hg] Common [facility] height 2022-12-28 11:15:00 69 [in_i] Commo n [facility] weight 2022-12-28 11:15:00 236 [lb_av] Comm on [facility] temperature 2022-12-28 11:15:00 98.6 [degF] Com [facility] bmi 2022-12-28 11:15:00 34.85 kg/m2 Comm on [facility] oximetry 2022-12-28 11:15:00 99 % Commo n [facility] respiratory rate 2022-12-28 11:15:00 18 /min [facility] blood pressure systolic 2022-12-28 11:15:00 159 mm[Hg] Common [facility] blood pressure diastolic 2022-12-28 11:15:00 76 mm[Hg] Common [facility] height 2022-11-28 08:20:00 69 [in_i] Commo n [facility] weight 2022-11-28 08:20:00 231.2 [lb_av] Co mmon [facility] temperature 2022-11-28 08:20:00 97.6 [degF] Com [facility] bmi 2022-11-28 08:20:00 34.14 kg/m2 Comm on [facility] oximetry 2022-11-28 08:20:00 97 % Commo n [facility] respiratory rate 2022-11-28 08:20:00 16 /min Common [facility] blood pressure systolic 2022-11-28 08:20:00 134 mm[Hg] Common [facility] blood pressure diastolic 2022-11-28 08:20:00 80 mm[Hg] Common [facility] height 2022-10-09 14:30:00 69 [in_i] Commo n [facility] weight 2022-10-09 14:30:00 227 [lb_av] Comm on [facility] temperature 2022-10-09 14:30:00 97.6 [degF] Com [facility] bmi 2022-10-09 14:30:00 33.52 kg/m2 Comm on [facility] oximetry 2022-10-09 14:30:00 99 % Commo n [facility] respiratory rate 2022-10-09 14:30:00 18 /min [facility] blood pressure systolic 2022-10-09 14:30:00 138 mm[Hg] Common [facility] blood pressure diastolic 2022-10-09 14:30:00 80 mm[Hg] [facility] height 2022-10-05 08:00:00 69 [in_i] Commo n [facility] weight 2022-10-05 08:00:00 227 [lb_av] Comm on [facility] temperature 2022-10-05 08:00:00 97.2 [degF] Com [facility] bmi 2022-10-05 08:00:00 33.52 kg/m2 Comm on [facility] oximetry 2022-10-05 08:00:00 97 % Commo n [facility] respiratory rate 2022-10-05 08:00:00 16 /min Common [facility] blood pressure systolic 2022-10-05 08:00:00 138 mm[Hg] Common [facility] blood pressure diastolic 2022-10-05 08:00:00 84 mm[Hg] Common [facility] height 2022-09-20 16:00:00 69 [in_i] Commo n [facility] weight 2022-09-20 16:00:00 227.4 [lb_av] Co mmon [facility] temperature 2022-09-20 16:00:00 97.7 [degF] Com mon [facility] bmi 2022-09-20 16:00:00 33.58 kg/m2 Comm on [facility] oximetry 2022-09-20 16:00:00 96 % Commo n [facility] respiratory rate 2022-09-20 16:00:00 18 /min [facility] blood pressure systolic 2022-09-20 16:00:00 160 mm[Hg] Common [facility] blood pressure diastolic 2022-09-20 16:00:00 84 mm[Hg] Common [facility] height 2022-09-18 14:20:00 69 [in_i] Commo n [facility] weight 2022-09-18 14:20:00 226.6 [lb_av] Co mmon [facility] temperature 2022-09-18 14:20:00 97.6 [degF] Com mon [facility] bmi 2022-09-18 14:20:00 33.46 kg/m2 Comm on [facility] oximetry 2022-09-18 14:20:00 95 % Commo n [facility] respiratory rate 2022-09-18 14:20:00 16 /min [facility] blood pressure systolic 2022-09-18 14:20:00 124 mm[Hg] Common [facility] blood pressure diastolic 2022-09-18 14:20:00 72 mm[Hg] Common [facility] height 2022-08-21 16:40:00 69 [in_i] Commo n [facility] weight 2022-08-21 16:40:00 232 [lb_av] Comm on [facility] temperature 2022-08-21 16:40:00 97.9 [degF] Com mon [facility] bmi 2022-08-21 16:40:00 34.26 kg/m2 Comm on [facility] oximetry 2022-08-21 16:40:00 97 % Commo n [facility] respiratory rate 2022-08-21 16:40:00 16 /min Common [facility] blood pressure systolic 2022-08-21 16:40:00 132 mm[Hg] Common [facility] blood pressure diastolic 2022-08-21 16:40:00 74 mm[Hg] Common [facility] height 2022-05-24 14:20:00 69 [in_i] Commo n [facility] weight 2022-05-24 14:20:00 238.0 [lb_av] Co mmon [facility] temperature 2022-05-24 14:20:00 98.2 [degF] Com mon [facility] bmi 2022-05-24 14:20:00 35.14 kg/m2 Comm on [facility] oximetry 2022-05-24 14:20:00 97 % Commo n [facility] respiratory rate 2022-05-24 14:20:00 16 /min Common [facility] blood pressure systolic 2022-05-24 14:20:00 136 mm[Hg] Common [facility] blood pressure diastolic 2022-05-24 14:20:00 78 mm[Hg] Common [facility] weight 2022-03-31 08:00:00 239 [lb_av] Comm on [facility] temperature 2022-03-31 08:00:00 98 [degF] Comm on [facility] bmi 2022-03-31 08:00:00 35.29 kg/m2 Comm on [facility] oximetry 2022-03-31 08:00:00 97 % Commo n [facility] respiratory rate 2022-03-31 08:00:00 16 /min Common [facility] blood pressure systolic 2022-03-31 08:00:00 132 mm[Hg] Common [facility] blood pressure diastolic 2022-03-31 08:00:00 78 mm[Hg] Common [facility] height 2022-03-31 08:00:00 69 [in_i] Commo n [facility] height 2021-04-29 16:20:00 69 [in_i] Commo n [facility] weight 2021-04-29 16:20:00 241.4 [lb_av] Co mmon [facility] temperature 2021-04-29 16:20:00 97.4 [degF] Com mon [facility] bmi 2021-04-29 16:20:00 35.64 kg/m2 Comm on [facility] oximetry 2021-04-29 16:20:00 97 % Commo n [facility] respiratory rate 2021-04-29 16:20:00 16 /min Common [facility] blood pressure systolic 2021-04-29 16:20:00 142 mm[Hg] Common [facility] blood pressure diastolic 2021-04-29 16:20:00 82 mm[Hg] Common [facility] height 2021-04-19 08:20:00 69 [in_i] Commo n [facility] weight 2021-04-19 08:20:00 240 [lb_av] Comm on [facility] bmi 2021-04-19 08:20:00 35.44 kg/m2 Comm on [facility] Procedures Procedure Date / Time Performed Performing Clinicia n Source PVR 2022-12-28 00:00:00 Common S pirit [facility] PVR 2022-09-20 [facility] Encounters Start Date/Time End Date/Time Encounter Type Admission Type Attending [facility] Facility Care Department Encounter ID Source 2023-05-28 08:47:00 Outpatient CrumpJadyn encarnacion [facility] [id number] [facility] 2023-02-15 09:33:00 Outpatient CrumpJadyn STLMLC [facility] [id number] [facility] 2022-11-20 16:06:00 Outpatient CrumpJadyn STLMLC [facility] [id number] [facility] 2022-09-14 16:31:00 Outpatient CrumpRoberti STLMLC ST[facility] [id number] [facility] 2022-08-23 11:18:00 Outpatient CrumpJadyn STLMLC ST[facility] [id number] [facility] 2022-05-22 08:17:00 Outpatient CrumpJadyn STLMLC ST[facility] [id number] [facility] 2022-03-08 08:50:03 Outpatient CrumpRobert cintroni STLMLC ST[facility] [id number] [facility] 2021-11-15 13:55:02 Outpatient CrumpRoberti STLMLC STL[facility]C [id number] [facility] 2021-08-31 08:53:02 Outpatient Crump Jadyn STL[facility]C ST[facility] [id number] [facility] 2021-04-28 13:19:01 Outpatient Crump, Jadyn [facility] ST[facility] [id number] [facility] 2021-04-27 11:29:02 Outpatient Crump Jadyn STLMLC STL[facility]C [id number] [facility] 2021-04-19 08:27:03 Outpatient Jadyn Crump [facility] ST[facility] [id number] [facility] 2023-09-14 00:00:00 2023-09-14 00:00:00 OFFICE VISIT ESTAB PT LEVEL 4 [facility] ST[facility] [id number] [facility] 2023-06-07 00:00:00 2023-06-07 00:00:00 OFFICE VISIT ESTAB PT LEVEL 3 [facility] ST[facility] [id number] [facility] 2023-05-30 00:00:00 2023-05-30 00:00:00 OFFICE VISIT ESTAB PT LEVEL 4 [facility] ST[facility] [id number] [facility] 2022-12-28 00:00:00 2022-12-28 00:00:00 OFFICE VISIT ESTAB PT LEVEL 3 [facility] ST[facility] [id number] [facility] 2022-11-28 00:00:00 2022-11-28 00:00:00 OFFICE VISIT ESTAB PT LEVEL 4 [facility] ST[facility] [id number] [facility] 2022-10-26 00:00:00 2022-10-26 00:00:00 (TEL) STLMLC STL[facility]C [id number] [facility] 2022-10-09 00:00:00 2022-10-09 00:00:00 OFFICE VISIT ESTAB PT LEVEL 4 [facility]C STL[facility]C [id number] [facility] 2022-10-05 00:00:00 2022-10-05 00:00:00 PREV VISIT EST AGE 40-64 [facility]LMLC STL[facility]C [id number] [facility] 2022-09-20 00:00:00 2022-09-20 00:00:00 OFFICE VISIT NEW PT LEVEL 3 [facility]C STL[facility]C [id number] [facility] 2022-09-18 00:00:00 2022-09-18 00:00:00 (TEL) STLMLC ST[facility]C [id number] [facility] 2022-09-18 00:00:00 2022-09-18 00:00:00 OFFICE VISIT ESTAB PT LEVEL 4 [facility] ST[facility] [id number] [facility] 2022-09-13 00:00:00 2022-09-13 00:00:00 (TEL) STLMLC STLMLC [id number] [facility] 2022-08-23 00:00:00 2022-08-23 00:00:00 (TEL) STLMLC STL[facility]C [id number] [facility] 2022-08-21 00:00:00 2022-08-21 00:00:00 OFFICE VISIT ESTAB PT LEVEL 4 [facility]C ST[facility]C [id number] [facility] 2022-08-16 00:00:00 2022-08-16 00:00:00 (TEL) STLMLC STLMLC [id number] [facility] 2022-05-24 00:00:00 2022-05-24 00:00:00 OFFICE VISIT ESTAB PT LEVEL 4 [facility]C STLMLC [id number] [facility] 2022-03-31 00:00:00 2022-03-31 00:00:00 OFFICE VISIT ESTAB PT LEVEL 4 [facility] ST[facility] [id number] [facility] 2021-09-02 00:00:00 2021-09-02 00:00:00 OFFICE VISIT ESTAB PT LEVEL 4 [facility]C ST[facility]C [id number] [facility] 2021-08-30 00:00:00 2021-08-30 00:00:00 (TEL) STLMLC STL[facility]C [id number] [facility] 2021-05-02 00:00:00 2021-05-02 00:00:00 (TEL) STLMLC STLMLC [id number] [facility] 2021-04-29 00:00:00 2021-04-29 00:00:00 OFFICE VISIT ESTAB PT LEVEL 4 [facility]C ST[facility]C [id number] [facility] 2021-04-19 00:00:00 2021-04-19 00:00:00 OFFICE VISIT NEW PT LEVEL 3 STLMLC STLC [id number] [facility] Results Test Description Test Time Test Comments Results Result Co mments Source CBC W/AUTO [id number] 00:00:00* Test Item Value Reference Range Interpretation Comme nts NUCLEATED RBCS (test code = 58406-5) 0.0 /100 WBC'S See_Comment [Automated messa ge] The system which generated this result transmitted reference range: 0.0 /100 WBC'S. The reference range was not used to interpret this result as normal/abnormal. ABSOLUTE EOSINOPHILS (test code = 01901-4) 0.28 K/UL See_Comment [Automated messa ge] The system which generated this result transmitted reference range: 0.00-0.50 K/UL. The reference range was not used to interpret this result as normal/abnormal. ABSOLUTE LYMPHOCYTES (test code = 15521-3) 2.47 K/UL See_Comment [Automated messa ge] The system which generated this result transmitted reference range: 1.00-4.00 K/UL. The reference range was not used to interpret this result as normal/abnormal. ABSOLUTE MONOCYTES (test code = 67534-7) 0.68 K/UL See_Comment [Automated messa ge] The system which generated this result transmitted reference range: 0.20-1.00 K/UL. The reference range was not used to interpret this result as normal/abnormal. ABSOLUTE NEUTROPHILS (test code = 25361-1) 5.92 K/UL See_Comment [Automated messa ge] The system which generated this result transmitted reference range: 1.50-7.50 K/UL. The reference range was not used to interpret this result as normal/abnormal. BASOPHILS (test code = 48931-0) 0.5 % EOSINOPHILS (test code = 54290-9) 3.0 % HEMATOCRIT (test code = 21549-6) 47.0 % See_Comment [Automated messa ge] The system which generated this result transmitted reference range: 40.0-51.0 %. The reference range was not used to interpret this result as normal/abnormal. HEMOGLOBIN (test code = 718-7) 15.9 G/DL See_Comment [Automated messa ge] The system which generated this result transmitted reference range: 13.5-17.0 G/DL. The reference range was not used to interpret this result as normal/abnormal. LYMPHOCYTES (test code = 28518-4) 26.2 % MCH (test code = 43120-4) 29.8 PG See_Comment [Automated messa ge] The system which generated this result transmitted reference range: 25.0-33.0 PG. The reference range was not used to interpret this result as normal/abnormal. MCHC (test code = 30694-4) 33.8 G/DL See_Comment [Automated messa ge] The system which generated this result transmitted reference range: 31.0-36.0 G/DL. The reference range was not used to interpret this result as normal/abnormal. MCV (test code = 96442-7) 88.0 fL See_Comment [Automated messa ge] The system which generated this result transmitted reference range: 80.0-99.0 fL. The reference range was not used to interpret this result as normal/abnormal. MONOCYTES (test code = 78754-6) 7.2 % NEUTROPHILS (test code = 87333-8) 62.7 % PLATELET COUNT (test code = 30767-2) 317 K/UL See_Comment [Automated messa ge] The system which generated this result transmitted reference range: 130-400 K/UL. The reference range was not used to interpret this result as normal/abnormal. RBC (test code = 39196-0) 5.34 M/UL See_Comment [Automated messa ge] The system which generated this result transmitted reference range: 4.50-6.10 M/UL. The reference range was not used to interpret this result as normal/abnormal. RDW (test code = 40357-7) 13.4 % See_Comment [Automated messa ge] The system which generated this result transmitted reference range: 11.5-15.0 %. The reference range was not used to interpret this result as normal/abnormal. WBC (test code = 79074-9) 9.4 K/UL See_Comment [Automated messa ge] The system which generated this result transmitted reference range: 3.5-11.0 K/UL. The reference range was not used to interpret this result as normal/abnormal. Shoulder Right 2 ViewShoulder Right 2 View
[2023-11-07 17:33] LABS: Absolute Basophils 0.1 K/uL (0-0.5); Absolute Eosinophils 0.3 K/uL (0-0.5); Absolute Lymphocytes (CBC) 1.7 K/uL (0.7-4.9); Absolute Monocytes 0.6 K/uL (0.1-1.3); Absolute Neutrophil 8.1 K/uL (1.8-8.0); Basophils % 0.6 % (0-1.3); Eosinophils % 2.4 % (0-4.4); Hematocrit 43.1 % (39.6-49.0); Hemoglobin 14.6 g/dL (13.6-17.9); Lymphocytes % 16.1 % (15.3-44.8); MCH 30.1 pg (27.0-35.0); MCHC 33.9 g/dL (32.0-36.0); MCV 88.9 fL (80-100); MPV 7.8 fL (7.6-11.3); Monocytes % 5.9 % (3.3-12.3); Nucleated Red Blood Cells % 0.1 % (0-0); Platelets 267 thou/uL (152-406); RBC Red Blood Cell Count 4.85 M/uL (4.33-5.43)
[2023-11-07 17:46] LABS: Albumin 3.6 g/dL (3.4-5.0); Albumin/Globulin Ratio 1.1 (1.1-1.8); Anion Gap 10.2 mEq/L (5.0-15.0); Bilirubin Total 0.6 mg/dL (0.2-1.0); Globulin 3.3 g/dL (2.3-3.5); Potassium 4.2 mEq/L (3.5-5.1); Protein, Total 6.9 g/dL (6.4-8.2)
--- NOTE | 2023-11-07 18:28 | RAD REPORT ---
EXAMINATION: [facility] CLINICAL INDICATION: Male, 58 years old. ABD PAIN TECHNIQUE: CT abdomen and pelvis was performed, without IV contrast, as per department protocol. Axia l, sagittal and coronal reconstructions were obtained. One or more of the following dose reduction techniques were used: Automated exposure control, adjustment of the mA and kV according to the patien t size, and iterative reconstruction. Unless otherwise specified, incidental findings do not require dedicated imaging follow-up. COMPARISON: 09/11/[address] FINDINGS: The lack of intravenous contrast limits the sensitivity of this exam for evaluation of solid visceral organs, vascular structures, and retroperitoneum. LOWER CHEST: The visualized lung bases are clear. LIVER: Normal in size and contour. No focal lesion. Stable geographic regions of hypoattenuation in t he right lobe, nonspecific but suggests regional fatty infiltration. BILIARY SYSTEM: No suspicious abnormalities. SPLEEN: Normal size. No focal lesion. PANCREAS: No mass, ductal dilation, or winston-pancreatic fluid. ADRENALS: Normal; no mass. KIDNEYS AND URETERS: Normal size and contour. Mild left hydroureteronephrosis. 3 mm calculus near the left vesicoureteral junction. Other nonobstructing bilateral renal calculi not exceeding 3 mm. URINARY BLADDER: Normal contour. GASTROINTESTINAL TRACT: No evidence of bowel obstruction, significant free fluid, free air or abscess . APPENDIX: Normal appendix. LYMPH NODES: No lymphadenopathy. MUSCULOSKELETAL: No acute or suspicious osseous abnormality. ADDITIONAL FINDINGS: Small right inguinal hernia containing fat. IMPRESSION: Mild left hydroureteronephrosis. 3 mm calculus near the left zygomatic ureteral junction. Multiple other nonobstructing bilateral renal calculi not exceeding 3 mm. Other incidental findings as above.. THIS REPORT CONTAINS FINDINGS THAT MAY BE CRITICAL TO PATIENT CARE. The findings were verbally commun icated via telephone to Dr. Charles on 11/07/2023 6:23 PM.
[2023-11-07] MEDS ORDERED: NA CHLORIDE 0.9% 0 ML ONE (19:22)
[2023-11-07] MEDS ORDERED: ONDANSETRON 4 MG/2 ML VIAL ONE (19:22)
[2023-11-07] MEDS ORDERED: MORPHINE 4 MG/ML SYR ONE (19:22)
[2023-11-07 19:58] LABS: Sqamous Epithelial None Seen /HPF (None Seen); Urine Bacteria None Seen /HPF (<20); Urine Bilirubin NEGATIVE (Negative); Urine Blood 2+ (Negative); Urine Clarity Clear (Clear); Urine Color Colorless (Yellow); Urine Culture Reflex Order NOT NEEDED; Urine Glucose 4+ (Over) (Negative); Urine Ketones NEGATIVE (Negative); Urine Micro Reflex YN NO BILL MICROSCOPIC; Urine Mucus Slight /HPF (None Seen); Urine Nitrite NEGATIVE (Negative); Urine Protein NEGATIVE (Negative); Urine Urobilinogen Normal (Normal); Urine WBC None Seen /HPF (<5); Urine pH 5.5 (5.0-7.0)
--- NOTE | 2023-11-07 20:01 | ER ---
Nurse's Notes [facility] Name: Michael Shafer Age: 58 yrs Sex: Male : 1965 Arrival Date: 11/07/2023 Time: 16:46 Bed 5 Private MD: Diagnosis: Calculus of ureter Presentation: 11/06 17:01 Chief complaint: Patient states: LEFT LOWER ABD PAIN RADIATING TO BACK. STARTED TODAY db AT 1500. REPORTS NAUSEA. STATES TOOK PROMETHAZINE 25 MG, TAMSULOSIN 0.4 MG AND KETOROLAC 10 MG AT 1600. Coronavirus screen: Client denies travel out of the [place] in the last 14 days. At this time, the client does not indicate any symptoms associated with coronavirus-19. Ebola Screen: Patient negative for fever greater than or equal to 101.5 degrees Fahrenheit, and additional compatible Ebola Virus Disease symptoms Patient denies exposure to infectious person. Patient denies travel to an Ebola-affected area in the 21 days before illness onset. No symptoms or risks identified at this time. Initial Sepsis Screen: Does the patient meet any 2 criteria? No. Patient's initial sepsis screen is negative. Does the patient have a suspected source of infection? No. Patient's initial sepsis screen is negative. Risk Assessment: Do you want to hurt yourself or someone else? Patient reports no desire to harm self or others. Onset of symptoms was November 07, 2023. 17:01 Method Of Arrival: Ambulatory db 17:01 Acuity: CRISSY 3 db Triage Assessment: 17:05 General: Appears in no apparent distress. comfortable, Behavior is calm, cooperative. db Pain: Complains of pain in abdomen. Neuro: Level of Consciousness is awake, alert, obeys commands, Oriented to person, place, time, situation. Respiratory: Airway is patent Respiratory effort is even, unlabored, Respiratory pattern is regular, symmetrical. GI: Abdomen is round. Historical: - Allergies: 17:05 NKA; db - PMHx: 17:05 diabetes mellitus; Hypertensive disorder; Kidney stone; db - PSHx: 17:05 heart stent; db - Immunization history:: Adult Immunizations unknown. - Infectious Disease History:: Denies. - Social history:: Smoking status: Patient reports use of chewing tobacco. Screenin:35 [facility] ED Fall Risk Assessment (Adult) History of falling in the last 3 months, bm8 including since admission No falls in past 3 months (0 pts) Confusion or Disorientation No (0 pts) Intoxicated or Sedated No (0 pts) Impaired Gait No (0 pts) Mobility Assist Device Used No (0 pt) Altered Elimination No (0 pt) Score/Fall Risk Level 0 - 2 = Low Risk Oriented to surroundings, Maintained a safe environment, Educated pt \T\ family on fall prevention, incl call for assistance when getting out of bed, Assessed \T\ reinforced patient's understanding of fall precautions, Hourly rounding (assess needs \T\ fall precautionary measures) done, Used ambulatory aids as needed (educated on \T\ assisted with), Used gait belt as appropriate. Abuse screen: Denies threats or abuse. Nutritional screening: No deficits noted. Tuberculosis screening: No symptoms or risk factors identified. Assessment: 19:35 Reassessment: Patient appears in no apparent distress at this time. Patient and/or bm8 family updated on plan of care and expected duration. Pain level reassessed. Patient is alert, oriented x 3, equal unlabored respirations, skin warm/dry/pink. Patient denies pain at this time. Patient states feeling better. Patient states symptoms have improved. General: Appears in no apparent distress. comfortable, Behavior is calm, cooperative, appropriate for age. Pain: Denies pain. Neuro: No deficits noted. Level of Consciousness is awake, alert, obeys commands, Oriented to person, place, time, situation, Appropriate for age. Cardiovascular: No deficits noted. Denies chest pain. Cardiovascular: Capillary refill < 3 seconds in bilateral fingers toes Patient's skin is warm and dry. Respiratory: Airway is patent Respiratory effort is even, unlabored, Respiratory pattern is regular, symmetrical. GI: No signs and/or symptoms were reported involving the gastrointestinal system. Abdomen is round non-distended, Bowel sounds present X 4 quads. Abd is soft and non tender. : Urine is blood tinged, Reports pain flank(s), lower quadrant(s) pain has resolved. EENT: No signs and/or symptoms were reported regarding the EENT system. Derm: No signs and/or symptoms reported regarding the dermatologic system. Musculoskeletal: No signs and/or symptoms reported regarding the musculoskeletal system. 19:38 Reassessment: spoke with provider about pt's wishes to go. Provider stated we are only bm8 waiting on urine. PT and Family informed of update. Vital Signs: 17:01 BP 158 / 80; Pulse 72; Resp 16; Temp 98.6; Pulse Ox 97% on R/A; Weight 105.23 kg; db Height 5 ft. 8 in. ; Pain 6/10; 19:35 BP 132 / 61; Pulse 71; Resp 18; Temp 98.6; Pulse Ox 98% ; Pain 0/10; bm8 17:01 Body Mass Index 35.27 (105.23 kg, 172.72 cm) db 17:01 Pain Scale: Adult db 19:35 Pain Scale: Adult bm8 [place] Coma Score: 19:35 Eye Response: spontaneous(4). Motor Response: obeys commands(6). Verbal Response: bm8 oriented(5). Total: 15. ED Course: 16:48 Patient arrived in ED. im 16:56 Babar Minor MD is Attending Physician. ec2 17:05 Triage completed. db 17:05 Arm band placed on Patient placed in waiting room. db 17:13 CBC with Diff Sent. bc6 17:13 CMP Sent. bc6 17:13 Lipase Sent. bc6 17:13 Initial lab(s) drawn, by me, sent to lab. Inserted saline lock: 20 gauge in left bc6 antecubital area, using aseptic technique. Blood collected. Flushed with 10 mL NS. 17:28 Stone Protocol In Process Unspecified. EDMS 19:20 Kendy Almaraz RN is Primary Nurse. br2 19:35 Patient has correct armband on for positive identification. Bed in low position. Call bm8 light in reach. Side rails up X 1. Adult w/ patient. Client placed on continuous cardiac and pulse oximetry monitoring. NIBP monitoring applied. monitor tech on. Pulse ox on. NIBP on. Door closed. Noise minimized. Pillow given. Verbal reassurance given. 19:35 No provider procedures requiring assistance completed. Patient maintains SpO2 bm8 saturation greater than 95% on room air. 19:56 Report received from CRICKET Hull. bm8 20:00 Pierce Ott MD is Referral Physician. ec2 20:08 Provided Education on: post er care. bm8 20:08 IV discontinued, intact, bleeding controlled, No redness/swelling at site. Pressure bm8 dressing applied. Administered Medications: 19:35 Not Given (Patient Refused): ns 0.9% 1000 ml IV at 1 bolus Per protocol; 1000 mL bolus bm8 19:35 Not Given (Patient Refused): ondansetron 4 mg IVP once; over 2 minutes bm8 19:35 Not Given (Patient Refused): morphineor iv 4 mg IVP once over 4 mins bm8 Medication: 19:35 VIS not applicable for this client. bm8 Outcome: 20:00 Discharge ordered by . ec2 20:08 Discharged to home ambulatory, bm8 20:08 Condition: stable 20:08 Discharge instructions given to patient, family, Instructed on discharge instructions, follow up and referral plans. no drinking with medication, no driving heavy equipment, medication usage, safety practices, Demonstrated understanding of instructions, follow-up care, medications, 20:08 Prescriptions given X 2, bm8 20:09 Patient left the ED. bm8 Signatures: Dispatcher [employer] Kaleigh Patterson, RN RN db Georgia Mcnair 6 Coral Calderón Edwin, MD MD ec2 Naseem Ma RN RN bm8 Kendy Almaraz RN RN br2
--- NOTE | 2023-11-07 20:01 | EDPHYS ---
Physician Documentation [facility] Name: Michael Shafer Age: 58 yrs Sex: Male : 1965 Arrival Date: 11/07/2023 Time: 16:46 Bed 5 Private MD: ED Physician Babar Minor HPI: 11/06 17:13 This 58 yrs old Male presents to ER via Ambulatory with complaints of Possible Kidney ec2 Stone. 17:13 Patient arrives today for evaluation of abdominal pain. Patient planing of 1 day of ec2 abdominal pain, reports associated nausea without vomiting. Patient complaining of left lower quadrant abdominal pain. . Historical: - Allergies: 17:05 NKA; db - PMHx: 17:05 diabetes mellitus; Hypertensive disorder; Kidney stone; db - PSHx: 17:05 heart stent; db - Immunization history:: Adult Immunizations unknown. - Infectious Disease History:: Denies. - Social history:: Smoking status: Patient reports use of chewing tobacco. ROS: 17:13 Constitutional: as per hpi ec2 Exam: 17:13 Constitutional: GEN: NAD Head: atraumatic Eyes: EOMI Ears: External ears are ec2 normal. CV: regular rate LUNGS: no respiratory distress ABD: non-distended, left lower quadrant abdominal TTP without guarding or rigidity. SKIN: no evidence of rashes MSK: no evidence of trauma Vital Signs: 17:01 BP 158 / 80; Pulse 72; Resp 16; Temp 98.6; Pulse Ox 97% on R/A; Weight 105.23 kg; db Height 5 ft. 8 in. ; Pain 6/10; 19:35 BP 132 / 61; Pulse 71; Resp 18; Temp 98.6; Pulse Ox 98% ; Pain 0/10; bm8 17:01 Body Mass Index 35.27 (105.23 kg, 172.72 cm) db 17:01 Pain Scale: Adult db 19:35 Pain Scale: Adult bm8 [place] Coma Score: 19:35 Eye Response: spontaneous(4). Motor Response: obeys commands(6). Verbal Response: bm8 oriented(5). Total: 15. MDM: 16:56 Patient medically screened. ec2 17:13 Data reviewed: vital signs. ED course: Patient arrives today for evaluation of ec2 abdominal pain. Examination remarkable for abdominal findings as above. Will obtain lab work, urine studies, CT imaging. Differential includes processes that she has diverticulitis, ureteral stone, pyelonephritis . 18:32 ED course: CBC reassuring, metabolic profile reassuring, lipase within normal ranges, ec2 CT shows 3 mm left UVJ stone. . 20:00 ED course: Urine with blood present otherwise noninfectious. Will discharge home. ec2 Return precautions given. . 11/06 16:56 Order name: CBC with Diff; Complete Time: 18:32 ec2 11/06 16:56 Order name: CMP; Complete Time: 18:32 ec2 11/06 16:56 Order name: Lipase; Complete Time: 18:32 ec2 11/06 18:32 Order name: UAM; Complete Time: 20:00 ec2 11/06 17:28 Order name: Stone Protocol; Complete Time: 18:32 EDMS 11/06 16:56 Order name: IV Saline Lock; Complete Time: 17:13 ec2 11/06 16:56 Order name: Labs collected and sent; Complete Time: 17:13 ec2 Administered Medications: 19:35 Not Given (Patient Refused): ns 0.9% 1000 ml IV at 1 bolus Per protocol; 1000 mL bolus bm8 19:35 Not Given (Patient Refused): ondansetron 4 mg IVP once; over 2 minutes bm8 19:35 Not Given (Patient Refused): morphineor iv 4 mg IVP once over 4 mins bm8 Disposition Summary: 11/07/23 20:00 Discharge Ordered Notes: Location: Home ec2 Condition: Stable ec2 Diagnosis - Calculus of ureter ec2 Followup: ec2 - With: Pierce Ott MD - When: - Reason: Recheck today's complaints Discharge Instructions: - Discharge Summary Sheet ec2 - Kidney Stones, [id number] ec2 Forms: - Medication Reconciliation Form ec2 - Antibiotic Education ec2 - Prescription Opioid Use ec2 - Patient Portal Instructions ec2 - Leadership Thank You Letter ec2 Prescriptions: - Flomax 0.4 mg Oral capsule - take 1 capsule ORAL route every 24 hours; 14 capsule; Refills: 0, Product ec2 Selection Permitted - acetaminophen-codeine 300-15 mg Oral tablet - take 1 tablet ORAL route every 4 hours as needed for pain; 15 tablet; Refills: ec2 0, Product Selection Permitted Signatures: Dispatcher [facility] Kaleigh Patterson, RN RN db Babar Minor MD MD ec2 Naseem Ma RN bm8 Corrections: (The following items were deleted from the chart) 17:28 16:56 Abdomen Pelvis Wo Con+CT.RAD.BRZ ordered. EDMS EDMS 18:33 18:33 Urinalysis W/Microscopic+U.LAB.BRZ ordered. EDMS EDMS
[2023-11-07 20:30] VITALS: TEMP 98.6
[2023-11-07 20:31] VITALS: BP 132/61; O2SAT 98
== END 2023-11-07 20:09 | disposition home or self-care (01) ==
LOC: ER 16:46
DX: N20.1 Calculus of ureter (principal); Z87.442 Personal history of urinary calculi; Z95.818 Presence of other cardiac implants and grafts
CPT/HCPCS: 36415; 74176; 76377; 80053; 81001; 83690; 85025; 99284; J2405; J7030